=== PATIENT | male | born 1960 | race Caucasian/White ===

== ENCOUNTER 2016-08-20 05:23 | Day surgery (SDC) | payer OTHER ==
[2016-08-20] MEDS ORDERED: Dextrose 5%-0.45% NaCl 1,000 ML IV SCH (06:00)
[2016-08-20] MEDS ORDERED: Midazolam 1 MG/ML 2 ML SDV ONE (06:18)
[2016-08-20] MEDS ORDERED: fentaNYL 100 MCG/2 ML SDV ONE (06:18)
[2016-08-20] MEDS ORDERED: fentaNYL 100 MCG/2 ML SDV IV ONE ×3 (06:38→14:38)
[2016-08-20] MEDS ORDERED: Midazolam 1 MG/ML 2 ML SDV IV ONE ×3 (06:38→14:38)
[2016-08-20 08:57] VITALS: BP 134/74
--- NOTE | 2016-08-20 10:14 | OR ---
DATE: 08/20/2016 PROCEDURE: Esophagogastroduodenoscopy and multiple pinch biopsies. INSTRUMENT USED: GIF-Q180 Olympus video panendoscope. PREMEDICATIONS: No oral topical anesthesia used. Fentanyl 100 mcg intravenous, Versed 2 mg intravenous. The procedure was done under pulse oximetry, BP recording, and mattress and foundation sewer. INDICATION: The patient with longstanding heartburn, dyspepsia, as well as abdominal pain, unexplained, and not responsive to medical measures. Treated for H. pylori in the past. Esophagogastroduodenoscopy is performed for detection of any active erosive lesions, Villar's esophagus and/or malignancy also under consideration, H. pylori status to be determined, endoscopic hemostasis therapy if needed. DESCRIPTION OF PROCEDURE: The scope was passed with ease. Adequate visualization of the esophagus was made from proximal to distal areas. No upper esophageal lesions identified. No distal esophageal stricture. No uphill or downhill esophageal varices. No Margarita-Garcia tear. No evidence of erosive esophagitis by [place] criteria. No esophageal polyp or tumor mass identified. Sliding hiatal hernia was noted. [place] columnar epithelium was noted at around 34 cm distal to the oral verge, 4-quadrant biopsies were taken from the area and sent for any histopathologic evidence of intestinal metaplasia. No proximal gastric varices noted. Gastric fundus examination by retroflexion showed no polypoid lesions. No gastric ulcer, malignant mass, or vascular ectasia identified. Duodenal bulb showed no ulcer. Visualized second part of the duodenum was unremarkable. Multiple pinch biopsies were taken from the gastric antrum and proximal body and sent for PyloriTek test for H. pylori and histopathology. No bleeding was noted from any of the visualized areas at the completion of examination. Photographs were taken of the duodenal bulb, gastric antrum, fundus, and distal esophagus. IMPRESSION: 1. Sliding hiatal hernia. 2. Columnar lined distal esophagus. The patient tolerated the procedure well. [facility] /[id number]
== END 2016-08-20 08:52 | disposition home or self-care (01) ==
LOC: DL.ENDO 05:23
PROVIDERS: ATTEND Internal Medicine Gastroenterology
DX: K29.50 Unspecified chronic gastritis without bleeding (principal); K20.9 Esophagitis, unspecified; K44.9 Diaphragmatic hernia without obstruction or gangrene; K31.89 Other diseases of stomach and duodenum; E66.09 Other obesity due to excess calories; Z87.891 Personal history of nicotine dependence; Z98.890 Other specified postprocedural states; Z79.899 Other long term (current) drug therapy
CPT/HCPCS: 43239; 87077; J2250; J3010; J7042

== ENCOUNTER 2021-09-18 05:22 | Day surgery (SDC) | payer OTHER ==
[2021-09-18] MEDS ORDERED: fentaNYL 100 MCG/2 ML SDV IV ONE ×3 (05:23→07:02)
[2021-09-18] MEDS ORDERED: Midazolam 1 MG/ML 2 ML SDV IV ONE ×7 (05:23→07:12)
[2021-09-18] MEDS ORDERED: Midazolam 1 MG/ML 2 ML SDV ONE (05:58)
[2021-09-18] MEDS ORDERED: fentaNYL 100 MCG/2 ML SDV ONE (05:58)
[2021-09-18] MEDS ORDERED: Dextrose 5%-0.45% NaCl 1,000 ML IV SCH (06:00)
[2021-09-18] MEDS ORDERED: Sodium Chloride 0.9% 10 ML Syringe FLUSH PRN (07:33)
[2021-09-18] MEDS ORDERED: Sodium Chloride 0.9% 10 ML Syringe FLUSH SCH (09:00)
[2021-09-18 09:31] VITALS: BP 143/76; PULSE 58
== END 2021-09-18 09:23 | disposition home or self-care (01) ==
LOC: DL.ENDO 05:22
PROVIDERS: ATTEND Internal Medicine Gastroenterology
DX: Z12.11 Encounter for screening for malignant neoplasm of colon (principal); D12.8 Benign neoplasm of rectum; K64.8 Other hemorrhoids
CPT/HCPCS: J2250; J3010; J7042